=== PATIENT | male | born 1955 | race Caucasian/White ===

== ENCOUNTER 2018-06-02 15:41 | Emergency (ER) | payer SELFPAY ==
[2018-06-02] MEDS ORDERED: HYDROmorphONE/DILAUDID 2 MG/ML INJ IVP ONE ×2 (15:46→16:35)
[2018-06-02] MEDS ORDERED: NS 1,000 ML IV ONE (15:46)
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
[2018-06-02 16:29] LABS: PLATELET COUNT 217 10^3/uL (150-400)
[2018-06-02] MEDS ORDERED: HYDROmorphONE/DILAUDID 1 MG/ML INJ ONE (16:34)
[2018-06-02 16:35] LABS: INR 0.99 (0.83-1.16); PROTIME(PATIENT) 13.3 SEC (12.0-15.0)
[2018-06-02] MEDS ORDERED: HYDROCOD/APAP 5/325 PREPACK#6 BTL TAKEHOME ONE (18:40)
[2018-06-02 18:46] VITALS: BP 174/94
== END 2018-06-02 18:53 | disposition home or self-care (01) ==
LOC: EDUNIT#
PROC: 0HQ1XZZ Repair Face Skin, External Approach (ICD-10-PCS; principal; 2018-06-02)
PROC: 0CQ0XZZ Repair Upper Lip, External Approach (ICD-10-PCS; 2018-06-02)
DX: S01.81XA Laceration without foreign body of other part of head, initial encounter (principal); S01.511A Laceration without foreign body of lip, initial encounter; S06.0X1A Concussion with loss of consciousness of 30 minutes or less, initial encounter; V19.9XXA Pedal cyclist (driver) (passenger) injured in unspecified traffic accident, initial encounter; Y93.55 Activity, bike riding; Y92.481 Parking lot as the place of occurrence of the external cause
CPT/HCPCS: 96374; G0480; J1170